=== PATIENT | female | born 1950 | race Caucasian/White ===

== ENCOUNTER 2017-11-05 07:49 | Outpatient (CLI) | payer SELFPAY | END 2017-11-05 07:50 | disposition home or self-care (01) | LOC: BICMAMMO 07:49 | PROVIDERS: ATTEND Family Medicine | DX: Z12.31 Encounter for screening mammogram for malignant neoplasm of breast (principal) | CPT/HCPCS: 77063; 77067; G0202 ==

== ENCOUNTER 2018-11-13 10:25 | Outpatient (CLI) | payer MEDICARE, BC | END 2018-11-13 10:26 | disposition home or self-care (01) | LOC: BICMAMMO 10:25 | PROVIDERS: ATTEND Family Medicine | DX: Z12.31 Encounter for screening mammogram for malignant neoplasm of breast (principal) | CPT/HCPCS: 77063; 77067 ==

== ENCOUNTER 2019-08-17 09:52 | Outpatient (CLI) | payer MEDICARE, BC ==
--- NOTE | 2019-08-17 10:32 | RAD ---
EXAM: Chest PA and lateral: HISTORY: Shortness of breath COMPARISON: none FINDINGS: Lung bush are clear. Mild increased interstitial markings. Vascular markings are normal. Heart and mediastinum appear unremarkable. Vascularity is normal. Osseous structures are unremarkable. IMPRESSION: No acute abnormality
== END 2019-08-17 09:53 | disposition home or self-care (01) ==
LOC: SCSRAD 09:52
PROVIDERS: ATTEND Family Medicine
DX: R06.02 Shortness of breath (principal)
CPT/HCPCS: 71046